=== PATIENT | male | born 1965 | race Caucasian/White ===

== ENCOUNTER 2018-07-29 10:34 | Emergency (ER) | payer BC, MEDICAID ==
[~2018-07-29] VITALS: Ht 172.7 cm; Wt 99.8 kg
[2018-07-29 10:47] VITALS: BP 150/102
[2018-07-29] MEDS ORDERED: diphenhdrAMINE HCL 50 MG/1 ML VL IM ONE (11:15)
== END 2018-07-29 11:54 | disposition home or self-care (01) ==
LOC: ER 10:34
DX: F41.1 Generalized anxiety disorder (principal); E11.9 Type 2 diabetes mellitus without complications; G43.909 Migraine, unspecified, not intractable, without status migrainosus; G89.29 Other chronic pain; M54.9 Dorsalgia, unspecified
CPT/HCPCS: 96372; 99284; J1200

== ENCOUNTER 2018-08-02 17:22 | Emergency (ER) | payer BC ==
[~2018-08-02] VITALS: Ht 172.7 cm; Wt 99.8 kg
[2018-08-02 17:32] VITALS: BP 100/60
[2018-08-02] MEDS ORDERED: ALPRAZolam 0.25 MG TAB PO ONE (21:00)
== END 2018-08-02 20:58 | disposition home or self-care (01) ==
LOC: ER 17:26
DX: F41.0 Panic disorder [episodic paroxysmal anxiety] (principal); F43.0 Acute stress reaction; E11.9 Type 2 diabetes mellitus without complications
CPT/HCPCS: 93005

== ENCOUNTER 2024-10-30 12:39 | Inpatient (IN) | payer BC, MEDICAID ==
[~2024-10-30] VITALS: Ht 175.3 cm; Wt 76.7 kg
[2024-10-30] MEDS: SODIUM CHLORIDE 0.9% 1,000 ML IVB ONE (13:55)
[2024-10-30] MEDS: NALOXONE HCL 1MG/ML 2ML SYRINGE IV ONE (13:57)
--- NOTE | 2024-10-30 14:01 | ED.PDOC ---
Psychiatric HPI Comments 59 y/o M, BIBA, with PMHx of polysubstance abuse presents to the ED for CC of overdose. EMS reports, patient is coming from home where S.O called d/t patient being found down and unresponsive with unknown substances on scene. Upon arrival to scene, patient was found apneic and cyanotic; 4mg of Narcan were given in the field. Per EMS, patient has had previous overdoses. At this time patient is lethargic and responsive to painful stimuli only. No other symptoms or modifiers are obtainable at this time. Chief Complaint: Overdose Time Seen by MD: 12:50 Primary Care Provider: UNKNOWN Reviewed Notes: Nurses Notes, Log Carrier Operator Notes, Medications, Allergies Information Source: Emergency Med Personnel Mode of Arrival: EMS Severity: Unable to Care for Self Severity of Pain: None Severity of Mental Status: Moderate Severity of Symptoms: Moderate Timing: Minutes Duration: Since onset Prehospital treatment: None Attempt: Ingestion Ingestion: Intentional, Drug(s) Ingested Circumstance: None Current substance abuse: Unknown Stressors: None History of: None Quality: None Location: None Location of pain or injury: None Associated signs and symptoms: None Past Medical History PAST MEDICAL HISTORY: Anxiety, DM Surgical History: Denies all surgeries Family History Family History: Unknown Social History Smoker: Non-Smoker Alcohol: Denies ETOH Use Drugs: Denies Drug Use Lives In: Home Constitutional: denies: chills, diaphoresis, fatigue, fever, malaise, sweats, weakness, others EENTM: denies: blurred vision, double vision, ear bleeding, ear discharge, ear drainage, ear pain, ear ringing, eye pain, eye redness, hearing loss, mouth pain, mouth swelling, nasal discharge, nose bleeding, nose congestion, nose pain, photophobia, tearing, throat pain, throat swelling, voice changes, others Respiratory: denies: cough, hemoptysis, orthopnea, SOB at rest, shortness of breath, SOB with excertion, stridor, wheezing, others Cardiovascular: denies: chest pain, dizzy spells, diaphoresis, Dyspnea on exertion, edema, irregular heart beat, left arm pain, lightheadedness, palpitations, PND, syncope, others Gastrointestinal: denies: abdomen distended, abdominal pain, blood streaked bowels, constipated, diarrhea, dysphagia, difficulty swallowing, hematemesis, melena, nausea, poor appetite, poor fluid intake, rectal bleeding, rectal pain, vomiting, others Genitourinary: denies: burning, dysuria, flank pain, frequency, hematuria, incontinence, penile discharge, penile sore, pain, testicle pain, testicle swelling, urgency, others Neurological: denies: dizziness, fainting, headache, left sided numbness, left sided weakness, numbness, paresthesia, pre-existing deficit, right sided numbness, right sided weakness, seizure, speech problems, tingling, tremors, weakness, others Musculoskeletal: denies: back pain, gout, joint pain, joint swelling, muscle pain, muscle stiffness, neck pain, others Integumetry: denies: bruises, change in color, change in hair/nails, dryness, laceration, lesions, lumps, rash, wounds, others Allergic/Immunocompromised: denies: Difficulty Healing, Frequent Infections, Hives, Itching, others Hematologic/Lymphatic: denies: anemia, blood clots, easy bleeding, easy bruising, swollen glands, others Endocrine: denies: excessive hunger, excessive sweating, excessive thirst, excessive urination, flushing, intolerance to cold, intolerance to heat, unexplained weight gain, unexplained weight loss, others Psychiatric: denies: anxiety, bipolar disorder, depression, hopeless, panic disorder, schizophrenia, sleepless, suicidal, others Unable to Obtain due to: Other (intoxicated, lethargic, responsive to painful stimuli only) All Other Systems: Reviewed and Negative Physical Exam General Appearance: Moderate Distress HEENT: Normal ENT Inspection, Pharynx Normal, TMs Normal Neck: Full Range of Motion, Non-Tender, Normal, Normal Inspection Respiratory: Chest Non-Tender, Lungs Clear, No Accessory Muscle Use, No Respiratory Distress, Normal Breath Sounds Cardiovascular: No Edema, No JVD, No Murmur, No Gallop, Normal Peripheral Pulses, Regular Rate/Rhythm Breast Exam: Deferred Gastrointestinal: No Organomegaly, Non Tender, No Pulsatile Mass, Normal Bowel Sounds, Soft Genitalia: Deferred Pelvic: Deferred Rectal: Deferred Extremities: No calf tenderness, No pedal edema Musculoskeletal : Apperance: Normal Neurologic: Disoriented Cerebellar Function: NOT DONE Reflexes: NOT DONE Skin: Pallor Peripheral Pulses: 3+ Radial (R), 3+ Radial (L) Lymphatic: No Adenopathy Was a procedure done? Was a procedure done?: No Psych Differential Dx OD Differential Dx: Substance Abuse, Suicidal Attempt X-Ray, Labs, Meds, VS Vital Signs Date Time Temp Pulse Resp B/P (MAP) Pulse Ox O2 Delivery O2 Flow Rate FiO2 10/30/24 14:39 95 Room Air* 0 21 10/30/24 14:37 97 20 96 Room Air* 0 21 10/30/24 14:00 98 20 123/75 (91) 94 10/30/24 13:47 98.9 102 20 129/81 (97) 94 98.9 10/30/24 12:41 99.0 105 28 111/72 96 99.0 Lab Test 10/30/24 15:22 10/30/24 14:33 10/30/24 14:00 Range/Units Urine Color Yellow Yellow Urine Clarity Clear Clear Urine pH 8.0 5.0-9.0 Urine Specific [place] 1.023 1.001-1.035 Urine Protein Trace H Negative Urine Ketones Negative Negative Urine Blood Negative Negative /uL Urine Nitrite Negative Negative Urine Bilirubin Negative Negative Urine Urobilinogen 4 H Negative mg/dL Urine Leukocyte Esterase Negative Negative /uL Urine RBC 2 0 - 3 /hpf Urine Microscopic WBC 4 H 0-3 /HPF Urine Squamous Epithelial Cells Few <5 /hpf Urine Bacteria Few H None Seen /hpf Urine Mucus Few None Seen Urine Glucose 2+ H Normal mg/dL Urine Opiates Screen Neg NEGATIVE Urine Fentanyl Screen Neg NEGATIVE Urine Barbiturates Screen Neg NEGATIVE Urine Phencyclidine Screen Neg NEGATIVE Urine Amphetamines Screen Pos NEGATIVE Urine Benzodiazepines Screen Neg NEGATIVE Urine Cocaine Screen Neg NEGATIVE Urine Cannabinoids Screen Neg NEGATIVE POC Glucose 142 H 70-106 mg/dl Salicylates Level < 3.0 -30 mg/dL Acetaminophen Level < 2.0 L 10.0-20.0 UG/ML Plasma/Serum Blood Alcohol 3.4 <10 mg/dL Current Medications Medications (Trade) Dose Ordered Sig/Feliz Route Start Time Stop Time Status Last Admin Naloxone HCl (Narcan) 2 mg ONCE ONCE IV 10/30/24 13:00 10/30/24 13:01 DC 10/30/24 13:57 Flumazenil (Romazicon Injection) 0.4 mg ONCE ONCE IV 10/30/24 14:15 10/30/24 14:16 DC 10/30/24 14:47 Patient altered. Drug use pain Unknown what substance he has taken. Vitals stable. Urinalysis shows methamphetamine. Was given Narcan. Was given flumazenil. Family members did state that he tried to kill himself. He has tried in the past. He is not medically cleared. Psychiatric evaluation after his medical clearance. Continue to monitor. Time of 1ST Reevaluation: 13:20 Reevaluation 1ST: Unchanged Patient Education/Counseling: Diagnosis, Treatment Family Education/Counseling: No Family Present Departure 1 Departure Time of Disposition: 15:50 Impression: Primary Impression: Metabolic encephalopathy Disposition: ADMITTED INPATIENT Admit to: Med Surg Condition: Guarded Critical Care Note Critical Care Time?: No Stability Stability form required: No Heart Score Heart Score: Heart Score Response (Comments) Value History Slightly Suspicious 0 EKG Normal 0 Age 45-64 1 Risk Factors 1 or 2 risk factors 1 Troponin N/A 0 Total 2 I personally scribed for MANNY VITAL MD ([email or web address]) on 10/30/24 at 14:01. Electronically submitted by Sarahi Sandoval ([email or web address]). MANNY VITAL MD Oct 30, 2024 14:01
[2024-10-30 14:28] LABS: Acetaminophen < 2.0 UG/ML (10.0-20.0); Salicylate < 3.0 mg/dL (-30)
[2024-10-30 14:37] VITALS: PULSE 97; RESP 20; O2SAT 96
[2024-10-30] MEDS: FLUMAZENIL 0.1 MG/ML INJ 10ML MDV IV ONE (14:47)
[2024-10-30 15:30] LABS: Urine Protein, UAD TRACE (Negative)
[2024-10-30 15:46] LABS: Barbiturate Scree,Urine Neg (NEGATIVE)
[2024-10-30 15:47] LABS: Amphetamine Screen, Urine Pos (NEGATIVE); Benzodiazephine Screen, Urine Neg (NEGATIVE); Cannabinoid Screen, Urine Neg (NEGATIVE); Cocaine Screen, Urine Neg (NEGATIVE); Opiate Scree,Urine Neg (NEGATIVE); Phencyclidine Screen, Urine Neg (NEGATIVE)
[2024-10-30 16:12] LABS: Hematocrit 45.8 % (41.0-53.0); Hemoglobin 16.0 g/dL (13.5-17.5); Mean Corpuscular Hemoglobin 34.5 pg (28.0-32.0); Mean Corpuscular Volume 98.5 fL (80.0-100.0); Nucleated Red Blood Cells % 0.0 %
[2024-10-30 16:27] LABS: Alanine Aminotransferase 31 U/L (7-40); Albumin 4.2 g/dL (3.2-4.8); Alkaline Phosphatase 74 U/L (46-116); Anion Gap 11 (5-15); BUN/Creatinine Ratio 7.7 (10.0-20.0); Bilirubin, Total 0.9 mg/dL (0.2-1.0); Blood Urea Nitrogen 14 mg/dL (9-23); Calcium 9.2 mg/dL (8.7-10.4); Carbon Dioxide 24 mmol/L (20-31); Chloride 108 mmol/L (98-107); Glucose 142 mg/dL (74-106); Potassium 4.0 mmol/L (3.5-5.1); Sodium 143 mmol/L (136-145); Total Protein 6.6 g/dL (5.7-8.2)
--- NOTE | 2024-10-30 16:31 | DVH ---
CHEST RADIOGRAPH Indication: sob Technique: Single frontal view of the chest was obtained COMPARISON: None FINDINGS: Lines and Tubes: None Lungs: Clear Pleura: No effusion. No pneumothorax. Cardiomediastinal contours: [id number] cardiomegaly Bones: Unremarkable IMPRESSION: 1. Mild to moderate cardiomegaly
[2024-10-30 19:54] VITALS: PULSE 97; RESP 16; O2SAT 97
[2024-10-31 12:01] VITALS: PULSE 96; PULSE 97; RESP 16; RESP 20; O2SAT 94; O2SAT 97
[2024-10-31 20:12] VITALS: PULSE 92; RESP 20; O2SAT 95
[2024-10-31] MEDS: LORazepam 2MG/ML-1ML VIAL IM ONE (22:30)
[2024-10-31] MEDS: HALOPERIDOL LACTATE 5 MG/ML INJ VIAL IM STA (22:37)
[2024-11-01] MEDS: LORazepam 2MG/ML-1ML VIAL IM STA (05:43)
[2024-11-01 19:30] VITALS: RESP 17; O2SAT 95
[2024-11-02 08:30] VITALS: PULSE 81; RESP 16; O2SAT 95
--- NOTE | 2024-11-02 09:47 | DVHINCON2 ---
Date of Service if different f: Nov 02, 2024 Consultation ([place]) Labs Laboratory Tests Test 10/30/24 14:00 10/30/24 14:33 10/30/24 15:22 White Blood Count 10.1 10^3/uL (4.4-10.8) Red Blood Count 4.65 10^6/uL (4.5-5.90) Hemoglobin 16.0 g/dL (13.5-17.5) Hematocrit 45.8 % (41.0-53.0) Mean Corpuscular Volume 98.5 fL (80.0-100.0) Mean Corpuscular Hemoglobin 34.5 pg (28.0-32.0) Mean Corpuscular Hemoglobin Concent 35.0 g/dL (32.0-36.0) Red Cell Distribution Width 13.6 % (11.8-14.3) Platelet Count 366 10^3/uL (140-450) Mean Platelet Volume 7.4 fL (6.9-10.8) Neutrophils (%) (Auto) 75.3 % (37.0-80.0) Lymphocytes (%) (Auto) 14.9 % (10.0-50.0) Monocytes (%) (Auto) 9.5 % (0.0-12.0) Eosinophils (%) (Auto) 0.1 % (0.0-7.0) Basophils (%) (Auto) 0.2 % (0.0-2.0) Neutrophils # (Auto) 7.6 10 ^3/uL (1.6-8.6) Lymphocytes # (Auto) 1.5 10 ^3/uL (0.4-5.4) Monocytes # (Auto) 1.0 10 ^3/uL (0-1.3) Eosinophils # (Auto) 0 10 ^3/uL (0-0.8) Basophils # (Auto) 0 10 ^3/uL (0-0.2) Nucleated Red Blood Cells 0.0 % Sodium Level 143 mmol/L (136-145) Potassium Level 4.0 mmol/L (3.5-5.1) Chloride Level 108 mmol/L (98-107) Carbon Dioxide Level 24 mmol/L (20-31) Anion Gap 11 (5-15) Blood Urea Nitrogen 14 mg/dL (9-23) Creatinine 1.81 mg/dL (0.700-1.30) Glomerular Filtration Rate Calc 42 mL/min (>90) BUN/Creatinine Ratio 7.7 (10.0-20.0) Serum Glucose 142 mg/dL (74-106) Calcium Level 9.2 mg/dL (8.7-10.4) Total Bilirubin 0.9 mg/dL (0.2-1.0) Aspartate Amino Transf (AST/SGOT) 87 U/L (13-40) Alanine Aminotransferase (ALT/SGPT) 31 U/L (7-40) Alkaline Phosphatase 74 U/L (46-116) Troponin I High Sensitivity 9 ng/L (</=54) Total Protein 6.6 g/dL (5.7-8.2) Albumin 4.2 g/dL (3.2-4.8) Salicylates Level < 3.0 mg/dL (-30) Acetaminophen Level < 2.0 UG/ML (10.0-20.0) Plasma/Serum Blood Alcohol 3.4 mg/dL (<10) Bedside Glucose 142 mg/dl (70-106) Urine Color Yellow (Yellow) Urine Clarity Clear (Clear) Urine pH 8.0 (5.0-9.0) Urine Specific [place] 1.023 (1.001-1.035) Urine Protein Trace (Negative) Urine Ketones Negative (Negative) Urine Blood Negative /uL (Negative) Urine Nitrite Negative (Negative) Urine Bilirubin Negative (Negative) Urine Urobilinogen 4 mg/dL (Negative) Urine Leukocyte Esterase Negative /uL (Negative) Urine RBC 2 /hpf (0 - 3) Urine Microscopic WBC 4 /HPF (0-3) Urine Squamous Epithelial Cells Few /hpf (<5) Urine Bacteria Few /hpf (None Seen) Urine Mucus Few (None Seen) Urine Glucose 2+ mg/dL (Normal) Urine Opiates Screen Neg (NEGATIVE) Urine Fentanyl Screen Neg (NEGATIVE) Urine Barbiturates Screen Neg (NEGATIVE) Urine Phencyclidine Screen Neg (NEGATIVE) Urine Amphetamines Screen Pos (NEGATIVE) Urine Benzodiazepines Screen Neg (NEGATIVE) Urine Cocaine Screen Neg (NEGATIVE) Urine Cannabinoids Screen Neg (NEGATIVE) Appearance: Stated age Psychomotor activity: WNL Behavioral: Cooperative Eye contact: Appropriate Speech: Slowed, Soft Affect: Flat, Guarded Mood: Depressed, Irritable Thought processes: Linear/Goal-directed Thought content: WNL Suicidal ideations: Absent Homicidal ideations: Absent Orientation: Person, Place, Time, Situation Memory intact: Recent Intellect: Average Abstractability: WNL Concentration: Adequate Attention: Adequate Judgement: Poor Insight: Poor Vitals Vital Signs Date Time Temp Pulse Resp B/P (MAP) Pulse Ox O2 Delivery O2 Flow Rate FiO2 11/01/24 20:00 98 11/01/24 19:30 17 95 Nasal Cannula* 2 28 11/01/24 19:00 130/69 (89) 11/01/24 08:00 97.5 97.5 Medication adjusted: No Diagnosis: Major depressive disorder, unspecified amphetamine abuse history Plan : patient with depressive symptoms and multiple recent suicide attempts. He remains unsafe for discharge Recommend 5150hold for DTS and transfer to inpatient psychiatric facility for stabilization and treatment. History of Present Illness Reason for Consult : Patient presented to ED fro recent overdose HPI : This is a 59-year-old male presented to ED via ambulance after overdose attempt at home. Patient is evaluated via telepsychiatry. He reports hx of depression. He initially says he does not why he is here or what led to his hospitalization. He later admits to ingesting multiple pills of Flexeril in suicide attempt. He also reports 2 weeks ago, had another attempted OD with Flexeril. He cannot recall dose or amount of pills used. He denies any known trigger. when asked if having suicidal ideation, responds, "not right now" he remains somewhat guarded and provides minimal answers. He denies homicidal ideation. he denies auditory/.visual hallucinations or paranoid thoughts. Past Psychiatric History : He reports prior diagnosis of depression. He denies current outpatient mental health services. He denies prescribed psychotropics. He denies past psych admissions or 5150holds. He reports 2 prior suicide attempts Past Medical History : Per history and physical Social History : He reports living with roommate. He denies any known family history. He reports using Flexeril and denies other substance use including marijuana and alcohol. Denies IVD. His Uds + Amphetamines. He has unknown employment or martial status. When asked about any social support systems, he denies any having this LAKHWINDER RAMOS DNP Nov 02, 2024 09:47
[2024-11-02] MEDS ORDERED: ACETAMINOPHEN 325 MG TAB PO PRN (14:30)
[2024-11-02] MEDS ORDERED: ONDANSETRON HCL 4 MG/2 ML VIAL IV PRN (14:30)
[2024-11-02] MEDS ORDERED: DOCUSATE SOD 100 MG CAP PO PRN (14:30)
--- NOTE | 2024-11-02 14:32 | DVHHP2 ---
Admitting Diagnosis: Drug overdose History of Present Illness 59 y/o M, BIBA, with PMHx of polysubstance abuse presents to the ED for CC of overdose. EMS reports, patient is coming from home where S.O called d/t patient being found down and unresponsive with unknown substances on scene. Upon arrival to scene, patient was found apneic and cyanotic; 4mg of Narcan were given in the field. Per EMS, patient has had previous overdoses. At this time patient is lethargic and responsive to painful stimuli only. No other symptoms or modifiers are obtainable at this time. PAST MEDICAL HISTORY: Anxiety, DM Surgical History: Denies all surgeries Family History Family History: Unknown Social History Smoker: Non-Smoker Alcohol: Denies ETOH Use Drugs: Denies Drug Use Lives In: Home Allergies: Coded Allergies: NO KNOWN ALLERGIES (Unverified , 08/02/18) Vital Signs Vital Signs Date Time Temp Pulse Resp B/P (MAP) Pulse Ox O2 Delivery O2 Flow Rate FiO2 11/02/24 08:30 81 16 95 Room Air* 0 21 11/02/24 08:30 97.9 124/76 (92) 97.9 Physical Exam Generally 59 years old male, well nourished well developed. No apparent distress HEENT-atraumatic, normocephalic Heart-regular rate and rhythm Lungs clear to auscultate Abdomen soft nontender nondistended Musculoskeletal-no edema cyanosis Neuro-AO x3, no focal deficits SEPSIS Sepsis Screen Date sepsis recognized/suspect: Nov 02, 2024 Time Sepsis recognized/suspect: 0830 Recent Procedure: No On Antibiotic Therapy: No Respiratory Rate >20: No Heart Rate >90: No Temp<36 C (96.8 F) or >38.3 C: No SBP <90 or MAP <65 mmHG: No New Acute Mental Status Change: No Is the patient on CPAP, BIPAP,: No Physician Orders Insert/Manage Urinary Catheter QSHIFT (10/30/24 15:13) Chest Portable (10/30/24 15:50) Soc Telemed Psych Consult (11/02/24 07:12) Admit (11/02/24 14:26) Code Status (11/02/24 14:26) Vital Signs .PER UNIT PROTOCOL (11/02/24 14:26) Review Orders With Adm. (11/02/24 14:26) Encourage Activity As Tolerate (11/02/24 14:26) Regular Diet (11/02/24 Dinner) Sodium Chloride Lock (Saline Lock Ns) (11/02/24 22:00) Sodium Chloride 0.9% (11/02/24 14:30) Docusate Sodium Capsule (Colace Capsule) (11/02/24 14:30) Acetaminophen Tablet (Tylenol Tablet) (11/02/24 14:30) Notify Md Of Changes From Base (11/02/24 14:) Advance Directive (11/02/24 14:) Patient Condition (11/02/24:) Allergies (11/02/24:) Hydrocodone-Acet 5/325mg Tab ([place] 32 (11/02/24 14:30) Ondansetron Hcl (Zofran) (11/02/24 14:30) Lovenox 40mg (11/03/24 10:00) Basic Metabolic Panel (11/03/24 05:00) Basic Metabolic Panel (11/04/24 05:00) Basic Metabolic Panel (11/05/24 05:00) Basic Metabolic Panel (11/06/24 05:00) Basic Metabolic Panel (11/07/24 05:00) * Buck Presser Consult (11/02/24 ) Vital Signs Date Time Temp Pulse Resp B/P (MAP) Pulse Ox O2 Delivery O2 Flow Rate FiO2 11/02/24 08:30 81 16 95 Room Air* 0 21 11/02/24 08:30 97.9 81 16 124/76 (92) 95 97.9 11/01/24 20:00 98 11/01/24 19:30 17 95 Nasal Cannula* 2 28 11/01/24 19:00 96 20 130/69 (89) 11/01/24 18:00 91 20 127/78 (94) 11/01/24 16:00 91 14 99/56 (70) 11/01/24 14:00 93 21 115/80 (92) 11/01/24 12:00 98 20 117/72 (87) 11/01/24 12:00 98 11/01/24 10:00 94 21 109/75 (86) 96 11/01/24 08:00 98 11/01/24 08:00 97.5 98 22 110/62 (78) 98 97.5 10/31/24 22:12 98.1 100 20 115/68 (84) 97 98.1 10/31/24 20:12 92 20 95 Nasal Cannula* 2 28 10/31/24 20:12 98.1 96 20 120/78 (92) 98 98.1 10/31/24 17:00 91 19 113/72 (86) 95 10/31/24 16:00 99 10/31/24 15:00 97 18 124/76 (92) 95 10/31/24 13:00 97 21 126/84 (98) 95 10/31/24 12:01 96 20 94 Nasal Cannula* 2 28 10/31/24 12:00 105 15 113/78 (90) 94 10/31/24 12:00 97 10/31/24 11:00 105 15 130/79 (96) 94 10/31/24 10:00 105 15 121/78 (92) 92 10/31/24 08:36 98.0 103 20 119/86 (97) 92 98.0 10/31/24 08:00 107 Laboratory Tests Test 10/30/24 14:00 White Blood Count 10.1 10^3/uL (4.4-10.8) Results Labs Test 10/30/24 15:22 10/30/24 14:33 10/30/24 14:00 Range/Units Urine Color Yellow Yellow Urine Clarity Clear Clear Urine pH 8.0 5.0-9.0 Urine Specific [place] 1.023 1.001-1.035 Urine Protein Trace H Negative Urine Ketones Negative Negative Urine Blood Negative Negative /uL Urine Nitrite Negative Negative Urine Bilirubin Negative Negative Urine Urobilinogen 4 H Negative mg/dL Urine Leukocyte Esterase Negative Negative /uL Urine RBC 2 0 - 3 /hpf Urine Microscopic WBC 4 H 0-3 /HPF Urine Squamous Epithelial Cells Few <5 /hpf Urine Bacteria Few H None Seen /hpf Urine Mucus Few None Seen Urine Glucose 2+ H Normal mg/dL Urine Opiates Screen Neg NEGATIVE Urine Fentanyl Screen Neg NEGATIVE Urine Barbiturates Screen Neg NEGATIVE Urine Phencyclidine Screen Neg NEGATIVE Urine Amphetamines Screen Pos NEGATIVE Urine Benzodiazepines Screen Neg NEGATIVE Urine Cocaine Screen Neg NEGATIVE Urine Cannabinoids Screen Neg NEGATIVE POC Glucose 142 H 70-106 mg/dl White Blood Count 10.1 4.4-10.8 10^3/uL Red Blood Count 4.65 4.5-5.90 10^6/uL Hemoglobin 16.0 13.5-17.5 g/dL Hematocrit 45.8 41.0-53.0 % Mean Corpuscular Volume 98.5 80.0-100.0 fL Mean Corpuscular Hemoglobin 34.5 H 28.0-32.0 pg Mean Corpuscular Hemoglobin Concent 35.0 32.0-36.0 g/dL Red Cell Distribution Width 13.6 11.8-14.3 % Platelet Count 366 140-450 10^3/uL Mean Platelet Volume 7.4 6.9-10.8 fL Neutrophils (%) (Auto) 75.3 37.0-80.0 % Lymphocytes (%) (Auto) 14.9 10.0-50.0 % Monocytes (%) (Auto) 9.5 0.0-12.0 % Eosinophils (%) (Auto) 0.1 0.0-7.0 % Basophils (%) (Auto) 0.2 0.0-2.0 % Neutrophils # (Auto) 7.6 1.6-8.6 10 ^3/uL Lymphocytes # (Auto) 1.5 0.4-5.4 10 ^3/uL Monocytes # (Auto) 1.0 0-1.3 10 ^3/uL Eosinophils # (Auto) 0 0-0.8 10 ^3/uL Basophils # (Auto) 0 0-0.2 10 ^3/uL Nucleated Red Blood Cells 0.0 % Sodium Level 143 136-145 mmol/L Potassium Level 4.0 3.5-5.1 mmol/L Chloride Level 108 H 98-107 mmol/L Carbon Dioxide Level 24 20-31 mmol/L Anion Gap 11 5-15 Blood Urea Nitrogen 14 9-23 mg/dL Creatinine 1.81 H 0.700-1.30 mg/dL Glomerular Filtration Rate Calc 42 >90 mL/min BUN/Creatinine Ratio 7.7 L 10.0-20.0 Serum Glucose 142 H 74-106 mg/dL Calcium Level 9.2 8.7-10.4 mg/dL Total Bilirubin 0.9 0.2-1.0 mg/dL Aspartate Amino Transferase (AST) 87 H 13-40 U/L Alanine Aminotransferase (ALT) 31 7-40 U/L Alkaline Phosphatase 74 46-116 U/L Troponin I High Sensitivity 9 </=54 ng/L Total Protein 6.6 5.7-8.2 g/dL Albumin 4.2 3.2-4.8 g/dL Salicylates Level < 3.0 -30 mg/dL Acetaminophen Level < 2.0 L 10.0-20.0 UG/ML Plasma/Serum Blood Alcohol 3.4 <10 mg/dL Primary Diagnosis Drug overdose Acute kidney injury Plan IV fluids trend renal function Psych in ED recommended 5150 hold for DTS and transferred to inpatient biopsychologist consulted patient is admitted pending transfer to inpatient psych full code lovenox for dvt ppx no gi ppx needed regular diet Plan discussed with: Patient Problems List: (1) Drug overdose Date of Service: Nov 02, 2024 Billing Provider: LOPEZ ORTA MD Common Visit Codes: [id number] INP/OBS CARE (MOD) LOPEZ ORTA MD Nov 02, 2024 14:32
[2024-11-02 15:53] LABS: Chloride 102 mmol/L (98-107); Potassium 3.7 mmol/L (3.5-5.1); Sodium 137 mmol/L (136-145)
[2024-11-02 15:54] LABS: Anion Gap 9 (5-15); Calcium 9.3 mg/dL (8.7-10.4); Carbon Dioxide 26 mmol/L (20-31)
[2024-11-02 15:59] LABS: BUN/Creatinine Ratio 28.6 (10.0-20.0)
[2024-11-02 16:01] LABS: Blood Urea Nitrogen 26 mg/dL (9-23); Glucose 163 mg/dL (74-106)
[2024-11-02] MEDS: SODIUM CHLOR 0.9% PF (SALINE LOCK) 10ML VIAL/SYR IV SCH (22:00)
[2024-11-02 22:11] VITALS: BP 124/82; PULSE 92; RESP 18; TEMP 97.2; O2SAT 95
[2024-11-02 22:12] VITALS: BP 124/82; PULSE 92; RESP 18; TEMP 97.2; O2SAT 95
[2024-11-02] MEDS ORDERED: BUTA-259 PO (22:36)
[2024-11-02] MEDS ORDERED: CYCL-839 PO (22:36)
[2024-11-02] MEDS: SODIUM CHLORIDE 0.9% 1,000 ML IV SCH (23:00)
[2024-11-03 01:27] VITALS: BP 119/78; PULSE 90; RESP 18; TEMP 97.6; O2SAT 93
[2024-11-03 02:30] VITALS: PULSE 92; RESP 18; O2SAT 95
[2024-11-03 05:28] VITALS: BP 115/84; PULSE 89; RESP 18; TEMP 97.8; O2SAT 93
[2024-11-03 08:00] VITALS: PULSE 90; RESP 17; O2SAT 98
[2024-11-03 09:06] LABS: Chloride 104 mmol/L (98-107); Sodium 140 mmol/L (136-145)
[2024-11-03 09:07] LABS: Anion Gap 8 (5-15); Carbon Dioxide 28 mmol/L (20-31)
[2024-11-03 09:13] LABS: BUN/Creatinine Ratio 24.7 (10.0-20.0); Blood Urea Nitrogen 18 mg/dL (9-23); Calcium 8.6 mg/dL (8.7-10.4); Glucose 109 mg/dL (74-106); Potassium 3.1 mmol/L (3.5-5.1)
[2024-11-03] MEDS: ENOXAPARIN SOD 40 MG/0.4 ML SYRINGE SC SCH (10:26)
--- NOTE | 2024-11-03 11:49 | DVHPN2 ---
Subjective The patient seen and examined at bedside. No complains today. Reviewed: Care Plan, H&P, Labs, Medications, Previous Orders, Radiology Changes from previous H/P or p: No Changes Objective Vitals Vital Signs Date Time Temp Pulse Resp B/P (MAP) Pulse Ox O2 Delivery O2 Flow Rate FiO2 11/03/24 05:28 97.8 89 18 115/84 (94) 93 97.8 11/03/24 02:30 Room Air* 0 21 Intake/Output Intake and Output 11/03/24 06:59 Intake Total 300 ml Balance 300 ml Intake Oral 300 ml General Appearance: Alert, Oriented X3, Cooperative, No acute distress HEENT: Atraumatic, PERRLA, EOMI, Mucous membr. moist/pink Neck: Supple Lungs: Clear to auscultation, Normal air movement Cardiovascular: Regular rate, Normal S1, Normal S2, No murmurs, Gallops, Rubs Abdomen: Normal bowel sounds, Soft, No tenderness Neuro: Cranial nerves 3-12 NL Psych/Mental Status: Mental status NL Medications Current Medications Medications Dose Ordered Sig/Feliz Route Start Time Stop Time Status Last Admin Dose Admin Sodium Chloride 10 ml Q8HR IV 11/02/24 22:00 11/03/24 06:00 10 ML Sodium Chloride 1,000 ml @ 60 mls/hr [id number] IV 11/02/24 14:30 11/03/24 07:25 60 MLS/HR Docusate Sodium 100 mg BIDPRN PRN PO 11/02/24 14:30 Acetaminophen 650 mg Q6HP PRN PO 11/02/24 14:30 Acetaminophen/ Hydrocodone Bitart 1 tab Q4HP PRN PO 11/02/24 14:30 Ondansetron HCl 4 mg Q4HP PRN IV 11/02/24 14:30 Enoxaparin Sodium 40 mg DAILY SC 11/03/24 10:00 11/03/24 10:26 40 MG Laboratory Results Laboratory Tests 10/30/24 14:00 11/03/24 06:53 Chemistry Test 11/02/24 15:23 11/03/24 06:53 Calcium Level 9.3 mg/dL (8.7-10.4) 8.6 mg/dL (8.7-10.4) L Urinalysis Test 10/30/24 15:22 Urine Color Yellow (Yellow) Urine Clarity Clear (Clear) Urine pH 8.0 (5.0-9.0) Urine Specific [place] 1.023 (1.001-1.035) Urine Protein Trace (Negative) H Urine Ketones Negative (Negative) Urine Blood Negative /uL (Negative) Urine Nitrite Negative (Negative) Urine Bilirubin Negative (Negative) Urine Urobilinogen 4 mg/dL (Negative) H Urine Leukocyte Esterase Negative /uL (Negative) Urine RBC 2 /hpf (0 - 3) Urine Microscopic WBC 4 /HPF (0-3) H Urine Squamous Epithelial Cells Few /hpf (<5) Urine Bacteria Few /hpf (None Seen) H Urine Mucus Few (None Seen) Urine Glucose 2+ mg/dL (Normal) H Labs and/or images reviewed: Labs reviewed by me Assessment/Plan Assessment/Plan Drug overdose Acute kidney injury Plan IV fluids renal function improved. Psych recommended 5150 hold for DTS and transferred to inpatient biopsychologist consulted patient is admitted pending transfer to inpatient psych Waiting for transfer to facility. This medical document was created using an electronic medical record system with [employer] direct computerized dictation system. Although this document has been carefully reviewed, there may still be some phonetic and typographical errors. These areas are purely typographical due to imperfections of the software programs, and do not reflect any compromise in the patient's medical care. Plan discussed with: Patient Date of Service: Nov 03, 2024 Billing Provider: JOHN SHERIDAN MD Common Visit Codes: [id number] INP/OBS CARE(HIGH) JOHN SEHRIDAN MD Nov 03, 2024 11:49
[2024-11-03 20:00] VITALS: RESP 17
[2024-11-03 21:00] VITALS: BP_SYST 121; BP_SYST 135; BP_DIAS 73; BP_DIAS 93; PULSE 87; PULSE 90; RESP 12; RESP 16; TEMP 98.1; TEMP 98.9; O2SAT 94; O2SAT 96
[2024-11-04] VITALS (8 sets, daily range): BP systolic 127–153; BP diastolic 77–96; PULSE 76–87; RESP 16–20; TEMP 98–98.5; O2SAT 93–97
[2024-11-04 07:30] LABS: Anion Gap 7 (5-15); Carbon Dioxide 28 mmol/L (20-31); Chloride 105 mmol/L (98-107); Potassium 3.6 mmol/L (3.5-5.1); Sodium 140 mmol/L (136-145)
[2024-11-04 07:32] LABS: Calcium 8.6 mg/dL (8.7-10.4)
[2024-11-04 07:36] LABS: BUN/Creatinine Ratio 17.3 (10.0-20.0); Blood Urea Nitrogen 13 mg/dL (9-23); Glucose 120 mg/dL (74-106)
[2024-11-04] MEDS: HYDROcodone-ACET 5/325MG TAB PO PRN (10:06)
--- NOTE | 2024-11-04 15:15 | DVHPN2 ---
Subjective The patient is seen and examined at bedside. No complaint today. Reviewed: Care Plan, H&P, Labs, Medications, Previous Orders, Radiology Changes from previous H/P or p: No Changes Objective Vitals Vital Signs Date Time Temp Pulse Resp B/P (MAP) Pulse Ox O2 Delivery O2 Flow Rate FiO2 11/04/24 13:00 98.1 86 20 142/92 (109) 97 98.1 11/04/24 08:00 Room Air* 0 21 Intake/Output Intake and Output 11/04/24 07:00 Intake Total 850 ml Balance 850 ml Intake Oral 850 ml IV Total 0 ml # Voids 2 # Bowel Movements 1 General Appearance: Alert, Cooperative, No acute distress HEENT: Atraumatic, PERRLA, EOMI, Mucous membr. moist/pink Neck: Supple Cardiovascular: Regular rate, Normal S1, Normal S2, No murmurs Abdomen: Normal bowel sounds, Soft, No tenderness Neuro: Cranial nerves 3-12 NL Psych/Mental Status: Mental status NL Medications Current Medications Medications Dose Ordered Sig/Feliz Route Start Time Stop Time Status Last Admin Dose Admin Sodium Chloride 10 ml Q8HR IV 11/02/24 22:00 11/03/24 06:00 10 ML Sodium Chloride 1,000 ml @ 60 mls/hr [id number] IV 11/02/24 14:30 11/03/24 07:25 60 MLS/HR Docusate Sodium 100 mg BIDPRN PRN PO 11/02/24 14:30 Acetaminophen 650 mg Q6HP PRN PO 11/02/24 14:30 Acetaminophen/ Hydrocodone Bitart 1 tab Q4HP PRN PO 11/02/24 14:30 11/04/24 10:06 1 TAB Ondansetron HCl 4 mg Q4HP PRN IV 11/02/24 14:30 Enoxaparin Sodium 40 mg DAILY SC 11/03/24 10:00 11/04/24 09:37 40 MG Nicotine 1 patch DAILY TD 11/04/24 15:00 Laboratory Results Laboratory Tests 10/30/24 14:00 11/04/24 06:50 Chemistry Test 11/04/24 06:50 Calcium Level 8.6 mg/dL (8.7-10.4) L Urinalysis Test 10/30/24 15:22 Urine Color Yellow (Yellow) Urine Clarity Clear (Clear) Urine pH 8.0 (5.0-9.0) Urine Specific [place] 1.023 (1.001-1.035) Urine Protein Trace (Negative) H Urine Ketones Negative (Negative) Urine Blood Negative /uL (Negative) Urine Nitrite Negative (Negative) Urine Bilirubin Negative (Negative) Urine Urobilinogen 4 mg/dL (Negative) H Urine Leukocyte Esterase Negative /uL (Negative) Urine RBC 2 /hpf (0 - 3) Urine Microscopic WBC 4 /HPF (0-3) H Urine Squamous Epithelial Cells Few /hpf (<5) Urine Bacteria Few /hpf (None Seen) H Urine Mucus Few (None Seen) Urine Glucose 2+ mg/dL (Normal) H Labs and/or images reviewed: Labs reviewed by me Assessment/Plan Assessment/Plan Drug overdose Acute kidney injury Plan IV fluids renal function improved. Psych recommended 5150 hold for DTS and transferred to inpatient psychology technician consulted patient is admitted pending transfer to inpatient psych Waiting for transfer to facility. This medical document was created using an electronic medical record system with [employer] direct computerized dictation system. Although this document has been carefully reviewed, there may still be some phonetic and typographical errors. These areas are purely typographical due to imperfections of the software programs, and do not reflect any compromise in the patient's medical care. Plan discussed with: Patient My Orders Orders - JOHN SHERIDAN MD Procedure Category Date Status Time Nicotine 21mg/24hr PHA 11/04/24 In Process (Nicoderm 21mg/24hr) 15:00 Date of Service: Nov 04, 2024 Billing Provider: JOHN SHERIDAN MD Common Visit Codes: [id number] INP/OBS CARE(HIGH) JOHN SHERIDAN MD Nov 04, 2024 15:15
[2024-11-04] MEDS: NICOTINE 21MG/24 HR TOPICAL PATCH TD SCH (15:46)
[2024-11-05] MEDS: FAMOTIDINE 20 MG TAB PO SCH (00:08)
[2024-11-05 01:00] VITALS: BP 147/92; PULSE 89; RESP 18; TEMP 98.2; O2SAT 96
[2024-11-05 05:00] VITALS: BP 153/97; PULSE 87; RESP 18; TEMP 98.3; O2SAT 98
[2024-11-05 07:38] LABS: Chloride 106 mmol/L (98-107); Potassium 3.6 mmol/L (3.5-5.1); Sodium 139 mmol/L (136-145)
[2024-11-05 07:39] LABS: Anion Gap 7 (5-15); Carbon Dioxide 26 mmol/L (20-31)
[2024-11-05 07:40] LABS: Calcium 8.7 mg/dL (8.7-10.4)
[2024-11-05 07:44] LABS: BUN/Creatinine Ratio 8.9 (10.0-20.0); Blood Urea Nitrogen 7 mg/dL (9-23); Glucose 139 mg/dL (74-106)
--- NOTE | 2024-11-05 08:58 | DVHDS2 ---
Discharge Summary Date of Admission Nov 02, 2024 at 14:26 Date of Discharge: Nov 05, 2024 Admitting Diagnosis Drug overdose Acute kidney injury Labs/Diagnostic Data: Laboratory Results Test 11/05/24 06:44 10/30/24 15:22 10/30/24 14:33 10/30/24 14:00 Sodium Level 139 mmol/L (136-145) Potassium Level 3.6 mmol/L (3.5-5.1) Chloride Level 106 mmol/L (98-107) Carbon Dioxide Level 26 mmol/L (20-31) Anion Gap 7 (5-15) Blood Urea Nitrogen 7 mg/dL (9-23) Creatinine 0.79 mg/dL (0.700-1.30) Glomerular Filtration Rate Calc 101 mL/min (>90) BUN/Creatinine Ratio 8.9 (10.0-20.0) Serum Glucose 139 mg/dL (74-106) Calcium Level 8.7 mg/dL (8.7-10.4) Urine Color Yellow (Yellow) Urine Clarity Clear (Clear) Urine pH 8.0 (5.0-9.0) Urine Specific [place] 1.023 (1.001-1.035) Urine Protein Trace (Negative) Urine Ketones Negative (Negative) Urine Blood Negative /uL (Negative) Urine Nitrite Negative (Negative) Urine Bilirubin Negative (Negative) Urine Urobilinogen 4 mg/dL (Negative) Urine Leukocyte Esterase Negative /uL (Negative) Urine RBC 2 /hpf (0 - 3) Urine Microscopic WBC 4 /HPF (0-3) Urine Squamous Epithelial Cells Few /hpf (<5) Urine Bacteria Few /hpf (None Seen) Urine Mucus Few (None Seen) Urine Glucose 2+ mg/dL (Normal) Urine Opiates Screen Neg (NEGATIVE) Urine Fentanyl Screen Neg (NEGATIVE) Urine Barbiturates Screen Neg (NEGATIVE) Urine Phencyclidine Screen Neg (NEGATIVE) Urine Amphetamines Screen Pos (NEGATIVE) Urine Benzodiazepines Screen Neg (NEGATIVE) Urine Cocaine Screen Neg (NEGATIVE) Urine Cannabinoids Screen Neg (NEGATIVE) POC Glucose 142 mg/dl (70-106) White Blood Count 10.1 10^3/uL (4.4-10.8) Red Blood Count 4.65 10^6/uL (4.5-5.90) Hemoglobin 16.0 g/dL (13.5-17.5) Hematocrit 45.8 % (41.0-53.0) Mean Corpuscular Volume 98.5 fL (80.0-100.0) Mean Corpuscular Hemoglobin 34.5 pg (28.0-32.0) Mean Corpuscular Hemoglobin Concent 35.0 g/dL (32.0-36.0) Red Cell Distribution Width 13.6 % (11.8-14.3) Platelet Count 366 10^3/uL (140-450) Mean Platelet Volume 7.4 fL (6.9-10.8) Neutrophils (%) (Auto) 75.3 % (37.0-80.0) Lymphocytes (%) (Auto) 14.9 % (10.0-50.0) Monocytes (%) (Auto) 9.5 % (0.0-12.0) Eosinophils (%) (Auto) 0.1 % (0.0-7.0) Basophils (%) (Auto) 0.2 % (0.0-2.0) Neutrophils # (Auto) 7.6 10 ^3/uL (1.6-8.6) Lymphocytes # (Auto) 1.5 10 ^3/uL (0.4-5.4) Monocytes # (Auto) 1.0 10 ^3/uL (0-1.3) Eosinophils # (Auto) 0 10 ^3/uL (0-0.8) Basophils # (Auto) 0 10 ^3/uL (0-0.2) Nucleated Red Blood Cells 0.0 % Total Bilirubin 0.9 mg/dL (0.2-1.0) Aspartate Amino Transferase (AST) 87 U/L (13-40) Alanine Aminotransferase (ALT) 31 U/L (7-40) Alkaline Phosphatase 74 U/L (46-116) Troponin I High Sensitivity 9 ng/L (</=54) Total Protein 6.6 g/dL (5.7-8.2) Albumin 4.2 g/dL (3.2-4.8) Salicylates Level < 3.0 mg/dL (-30) Acetaminophen Level < 2.0 UG/ML (10.0-20.0) Plasma/Serum Blood Alcohol 3.4 mg/dL (<10) Other Laboratory Tests 11/05/24 06:44 10/30/24 14:00 Brief Hx & Hospital Course: This is a 59 years has of polysubstance abuse came to emergency department with chief overdose. Apparently the patient was found to be down on on with unknown substance at the scene 911 was called. EMS picked and found patient apneic and cyanotic. Family mg of Narcan with given the food. EMS patient has had previous overdose episode. When patient 1st to the ER he lethargic and only responsive to painful stimuli. The patient was admitted. Patient had acute renal failure. Patient also subsequently awake. Tele psych saw the patient and recommend [id number] and inpatient psychiatric hospitalization. financial institution manager was consulted for placement of inpatient psychiatric hospitalization. However patient and lobe and refused to sign against medical advice but left the hospital. The patient refused to listen to advice and does not want in his stay. Refused to sign the against medical advice paperwork. [facility] department was notified that the patient and look from the hospital this time 5051 hold for inpatient psychiatric hospital Physical exam HEENT: Normocephalic atraumatic pupils equal react to light and accommodation. Extraocular muscles intact, conjunctiva pink, oropharynx moist, no thrush, no exudate. Lymphatic: No lymphadenopathy Cardiovascular exam: S1, S2 was heard. No murmurs, rubs, gallops Lung: Clear on auscultation bilaterally, no wheeze, rale, rhonchi. GI: Abdominal soft, nondistended, nontenderness, positive bowel sounds. Extremity: No crepitus, cyanosis, edema. Pedal pulses present bilateral. Full range of motion. Skin: Normal turgor, no rash. Psych: Alert, oriented x3. Neurology: No focal deficits, cranial nerve II to XII grossly intact. This medical document was created using an electronic medical record system with [employer] direct computerized dictation system. Although this document has been carefully reviewed, there may still be some phonetic and typographical errors. These areas are purely typographical due to imperfections of the software programs, and do not reflect any compromise in the patient's medical care. Condition at Discharge: Guarded Final Diagnosis/Problems List Drug overdose Sucidal attempted Acute kidney injury Discharge Disposition: Eloped Discharge Instruct/Medications Scheduled PRN Dswoqgziyq-Narizmfqbpvil-Wexjx (Fioricet Tablet), 1 TAB PO for MIGRAINE, (Reported) Cyclobenzaprine Hcl (Cyclobenzaprine Hcl), 10 MG PO for MUSCLE SPASM, (Reported) Discharge Statement: "Patient was advised to return to the ER or call 911 if any headaches, dizziness, shortness of breath, chest pain, abdominal pain, bleeding, fevers, or worsening of medical condition. Patient was counseled about treatment plan, medications, possible side effects, patientverbalized understanding. All questions were answered to the best of my ability. This discharge took greater then 30 minutes in planning, reviewing documentation, counseling the patient, and discussing with other team members." ASSESSMENT ASSESSMENT Assessment Date of Service: Nov 05, 2024 Billing Provider: JOHN SHERIDAN MD Common Visit Codes: 50208-SIZ/OBS DISCH DAY >30min JOHN SHERIDAN MD Nov 05, 2024 08:58
[2024-11-05] MEDS ORDERED: NICOTINE 21MG/24 HR TOPICAL PATCH TD SCH (10:00)
== END 2024-11-05 08:15 | disposition left against medical advice (07) | DRG 812 ==
LOC: ER 12:39 → EDBD 12:39 → UNDOADMIN 11-02 03:25 → OVERFLOW 11-02 03:25 → CENTRAL 11-02 22:10
PROVIDERS: ADMIT Internal Medicine; ATTEND Internal Medicine
DX: T48.1X1A Poisoning by skeletal muscle relaxants [neuromuscular blocking agents], accidental (unintentional), initial encounter (principal); J96.20 Acute and chronic respiratory failure, unspecified whether with hypoxia or hypercapnia; N17.0 Acute kidney failure with tubular necrosis; G92.8 Other toxic encephalopathy; Z53.29 Procedure and treatment not carried out because of patient's decision for other reasons; F32.9 Major depressive disorder, single episode, unspecified; F41.9 Anxiety disorder, unspecified; Y92.89 Other specified places as the place of occurrence of the external cause; Z79.899 Other long term (current) drug therapy
CPT/HCPCS: 36415; 71045; 80048; 80053; 80307; 80320; 80329; 81001; 82947; 82962; 84484; 85025; 96372; 96374; 96375; G0378